=== PATIENT | male | born 1980 | race Caucasian/White ===

== ENCOUNTER 2020-09-03 14:53 | Inpatient (IN) | payer MEDICAID, OTHER ==
[~2020-09-03] VITALS: Ht 170.2 cm; Wt 120.2 kg
[2020-09-03 15:18] LABS: Basophils # (auto) 0.1 10 ^3/uL (0-0.2); Basophils % (auto) 1.3 % (0.0-2.0); Eosinophils # (auto) 0.3 10 ^3/uL (0-0.8); Hematocrit 45.8 % (41.0-53.0); Hemoglobin 15.5 g/dL (13.5-17.5); Lymphocytes # (auto) 1.8 10 ^3/uL (0.4-5.4); Lymphocytes % (auto) 36.7 % (10.0-50.0); Mean Corpuscular Hgb Conc. 33.7 g/dL (32.0-36.0); Mean Corpuscular Volume 88.8 fL (80.0-100.0); Monocytes # (auto) 0.5 10 ^3/uL (0-1.3); Monocytes % (auto) 9.5 % (0.0-12.0); Neutrophils # (auto) 2.3 10 ^3/uL (1.6-8.6); Neutrophils % (auto) 46.5 % (37.0-80.0); Platelet Count (auto) 170 10^3/uL (140-450); Red Blood Cells 5.16 10^6/uL (4.5-5.90); Red Cell Distribution Width 14.2 % (11.8-14.3); White Blood Cell 4.9 10^3/uL (4.4-10.8)
[2020-09-03] MEDS ORDERED: ASPirin 81 mg TAB PO ONE ×2 (15:30→23:45)
[2020-09-03 15:53] LABS: Alanine Aminotransferase 39 U/L (16-61); Albumin 3.8 g/dL (3.4-5.0); Anion Gap 5 (5-15); Aspartate Aminotransferase 25 U/L (15-37); BUN/Creatinine Ratio 4.8; Blood Urea Nitrogen 6 mg/dL (7-18); Calcium 8.7 mg/dL (8.5-10.1); Carbon Dioxide 29 mmol/L (21-32); Chloride 107 mmol/L (98-107); GFR African American 83 mL/min; GFR Non-African American 68 mL/min; Glucose 79 mg/dL (74-106); Potassium 3.7 mmol/L (3.5-5.1); Sodium 141 mmol/L (136-145)
[2020-09-03 15:58] LABS: Alkaline Phosphatase 84 U/L (45-117); Bilirubin, Total 0.4 mg/dL (0.2-1.0); Total Protein 7.1 g/dL (6.4-8.2)
[2020-09-03] MEDS: SODIUM CHLORIDE 0.9% 1,000 ML IV SCH (17:15)
[2020-09-03] MEDS ORDERED: ONDANSETRON HCL 4 MG/2 ML VIAL IV PRN (17:15)
[2020-09-03] MEDS ORDERED: MORPHINE SULFATE 4 MG/ML SYR/VIAL IV PRN (17:15)
[2020-09-03] MEDS ORDERED: NITROGLYCERIN 0.4 MG SL TAB SL PRN (17:15)
[2020-09-03 22:00] VITALS: BP 146/93
[2020-09-03] MEDS: ATORVASTATIN 20 MG TAB PO SCH (22:28)
[2020-09-03] MEDS: ZOLPIDEM TARTRATE 5 MG TAB PO PRN (22:28)
[2020-09-03] MEDS: LORazepam 0.5 MG TAB PO PRN (22:28)
[2020-09-03] MEDS: CARVEDILOL 3.125 MG TAB PO SCH (22:28)
[2020-09-04 06:00] VITALS: BP 114/69
[2020-09-04] MEDS: SODIUM CHLORIDE 0.9% 1,000 ML IV SCH ×2 (06:03→18:40)
[2020-09-04 09:00] VITALS: BP 130/97
[2020-09-04] MEDS: DOCUSATE SOD 100 MG CAP PO SCH (09:26)
[2020-09-04] MEDS: ASPirin 81 mg TAB PO SCH (09:26)
[2020-09-04] MEDS: CLOPIDOGREL BISULFATE 75 MG TAB PO SCH (09:28)
[2020-09-04] MEDS: CARVEDILOL 3.125 MG TAB PO SCH ×2 (09:28→21:54)
[2020-09-04] MEDS: LISINOPRIL 10 MG TAB PO SCH (09:29)
[2020-09-04 13:00] VITALS: BP 133/95
[2020-09-04 13:17] LABS: INR 1.06 (0.9-1.15)
[2020-09-04 15:14] LABS: Cholesterol 177 mg/dL (< 200); HDL Cholesterol 32 mg/dL (40-59); LDL Cholesterol 131 mg/dL (< 100); Triglycerides 191 mg/dL (< 150)
[2020-09-04 17:30] VITALS: BP 136/83
[2020-09-04] MEDS: ATORVASTATIN 20 MG TAB PO SCH (21:55)
[2020-09-04] MEDS: ACETAMINOPHEN 325 MG TAB PO PRN (22:01)
[2020-09-04 22:26] VITALS: BP 138/85
[2020-09-05 04:58] VITALS: BP 98/53
[2020-09-05 07:05] LABS: Basophils # (auto) 0.1 10 ^3/uL (0-0.2); Eosinophils # (auto) 0.3 10 ^3/uL (0-0.8); Eosinophils % (auto) 6.3 % (0.0-7.0); Hematocrit 46.7 % (41.0-53.0); Hemoglobin 15.7 g/dL (13.5-17.5); Lymphocytes # (auto) 1.9 10 ^3/uL (0.4-5.4); Lymphocytes % (auto) 35.9 % (10.0-50.0); Mean Corpuscular Hemoglobin 29.8 pg (28.0-32.0); Mean Corpuscular Hgb Conc. 33.7 g/dL (32.0-36.0); Mean Corpuscular Volume 88.6 fL (80.0-100.0); Monocytes # (auto) 0.5 10 ^3/uL (0-1.3); Monocytes % (auto) 9.4 % (0.0-12.0); Neutrophils # (auto) 2.5 10 ^3/uL (1.6-8.6); Neutrophils % (auto) 47.4 % (37.0-80.0); Nucleated Red Blood Cells % 0.1 %; Platelet Count (auto) 163 10^3/uL (140-450); Red Blood Cells 5.28 10^6/uL (4.5-5.90); White Blood Cell 5.3 10^3/uL (4.4-10.8)
[2020-09-05 07:38] LABS: Anion Gap 4 (5-15); BUN/Creatinine Ratio 10.1; Blood Urea Nitrogen 12 mg/dL (7-18); Calcium 8.6 mg/dL (8.5-10.1); Carbon Dioxide 28 mmol/L (21-32); Chloride 107 mmol/L (98-107); GFR African American 87 mL/min; GFR Non-African American 72 mL/min; Glucose 88 mg/dL (74-106); Potassium 4.1 mmol/L (3.5-5.1); Sodium 139 mmol/L (136-145)
[2020-09-05] MEDS ORDERED: ADENOSINE 88 MG in GIVE UN-DILUTED 0 ML IV STA (08:12)
[2020-09-05 09:00] VITALS: BP 148/90
[2020-09-05] MEDS: ASPirin 81 mg TAB PO SCH (09:41)
[2020-09-05] MEDS: LISINOPRIL 10 MG TAB PO SCH (09:45)
[2020-09-05] MEDS: CLOPIDOGREL BISULFATE 75 MG TAB PO SCH (09:45)
[2020-09-05] MEDS: ACETAMINOPHEN 325 MG TAB PO PRN (09:46)
[2020-09-05] MEDS: DOCUSATE SOD 100 MG CAP PO SCH (09:48)
[2020-09-05] MEDS: CARVEDILOL 3.125 MG TAB PO SCH ×2 (09:52→21:30)
[2020-09-05 10:07] LABS: Alcohol, Urine < 3.0 mg/dL (0-10); Amphetamine Screen, Urine NEGATIVE (NEGATIVE); Barbiturate Scree,Urine NEGATIVE (NEGATIVE); Benzodiazephine Screen, Urine NEGATIVE (NEGATIVE); Cannabinoid Screen, Urine NEGATIVE (NEGATIVE); Cocaine Screen, Urine NEGATIVE (NEGATIVE); Opiate Scree,Urine NEGATIVE (NEGATIVE); Phencyclidine Screen, Urine NEGATIVE (NEGATIVE)
[2020-09-05 10:18] LABS: Urine Bacteria NONE SEEN /hpf (None Seen); Urine Blood Negative /uL (Negative); Urine Hyaline Cast FEW /lpf (0 - 2); Urine Specific Gravity 1.012 (1.001-1.035); Urine WBC <1 /hpf (0 - 3)
[2020-09-05 10:19] VITALS: BP 137/94
[2020-09-05 12:55] VITALS: BP 148/101
[2020-09-05 16:59] VITALS: BP 131/99
[2020-09-05] MEDS: ATORVASTATIN 20 MG TAB PO SCH (21:30)
[2020-09-05] MEDS: ZOLPIDEM TARTRATE 5 MG TAB PO PRN (21:41)
[2020-09-05 22:00] VITALS: BP 128/94
[2020-09-06] MEDS: ASPirin 81 mg TAB PO SCH ×2 (04:25→10:00)
[2020-09-06 05:00] VITALS: BP 65/94
[2020-09-06] MEDS: LORazepam 0.5 MG TAB PO PRN (06:19)
[2020-09-06 06:43] LABS: Basophils # (auto) 0.1 10 ^3/uL (0-0.2); Eosinophils # (auto) 0.3 10 ^3/uL (0-0.8); Eosinophils % (auto) 4.4 % (0.0-7.0); Hematocrit 49.2 % (41.0-53.0); Hemoglobin 16.3 g/dL (13.5-17.5); Lymphocytes # (auto) 1.9 10 ^3/uL (0.4-5.4); Lymphocytes % (auto) 30.7 % (10.0-50.0); Mean Corpuscular Hemoglobin 29.3 pg (28.0-32.0); Mean Corpuscular Volume 88.8 fL (80.0-100.0); Monocytes # (auto) 0.6 10 ^3/uL (0-1.3); Monocytes % (auto) 9.9 % (0.0-12.0); Neutrophils # (auto) 3.4 10 ^3/uL (1.6-8.6); Nucleated Red Blood Cells % 0.1 %; Platelet Count (auto) 166 10^3/uL (140-450); Red Blood Cells 5.54 10^6/uL (4.5-5.90); White Blood Cell 6.3 10^3/uL (4.4-10.8)
[2020-09-06] MEDS ORDERED: LEVOTHYROXINE SODIUM 25 MCG TAB PO SCH (07:00)
[2020-09-06 07:02] LABS: BUN/Creatinine Ratio 10.9; Potassium 3.8 mmol/L (3.5-5.1)
[2020-09-06 07:07] LABS: INR 1.06 (0.9-1.15); Partial Thromboplastin Time 28.9 sec (23.0-31.2)
[2020-09-06 09:00] VITALS: BP 99/67
[2020-09-06] MEDS: LISINOPRIL 10 MG TAB PO SCH (10:00)
[2020-09-06] MEDS: CARVEDILOL 3.125 MG TAB PO SCH (10:00)
[2020-09-06] MEDS: DOCUSATE SOD 100 MG CAP PO SCH (10:00)
[2020-09-06] MEDS: CLOPIDOGREL BISULFATE 75 MG TAB PO SCH (10:00)
[2020-09-06] MEDS ORDERED: LIDOCAINE 2%HCL (LOCAL ANESTH.) INJ 20ML MDV ONE (10:54)
[2020-09-06] MEDS ORDERED: IODIXANOL 320MG/ML 100ML BTL IV ONE (10:54)
[2020-09-06] MEDS ORDERED: VERAPAMIL 2.5MG/ML INJ 2ML VIAL IV ONE (11:20)
[2020-09-06] MEDS ORDERED: HEPARIN SODIUM (PORCINE) 5000 UNITS/ML 1ML VIAL ONE ×2 (11:20→11:39)
[2020-09-06] MEDS ORDERED: SODIUM CHL 0.9% 0 ML ONE (11:21)
[2020-09-06] MEDS ORDERED: MIDAZOLAM HCL 1MG/1ML-2 ML VIAL ONE (11:21)
[2020-09-06] MEDS ORDERED: fentaNYL CITRATE 100 MCG/2 ML VL ONE (11:21)
[2020-09-06] MEDS ORDERED: ANGIOMAX 250 MG VIAL IV ONE (11:21)
[2020-09-06] MEDS ORDERED: IOHEXOL 350 MG/ML 100ML IJ ONE (11:22)
[2020-09-06 13:15] VITALS: BP 136/92
[2020-09-06] MEDS ORDERED: HYDROcodone-ACET 5/325MG TAB PO ONE (13:30)
[2020-09-06] MEDS ORDERED: LEV25T PO (14:04)
[2020-09-06] MEDS ORDERED: LISI-648 PO (14:04)
[2020-09-06] MEDS ORDERED: ASPI81CH43 PO (14:04)
[2020-09-06] MEDS ORDERED: METO25TA36 PO (14:04)
[2020-09-06] MEDS ORDERED: ATOR40TA52 PO (14:04)
[2020-09-06 16:00] VITALS: BP 142/90
[2020-09-06 16:38] VITALS: BP 136/100
[2020-09-06 18:09] VITALS: BP 136/100
== END 2020-09-06 18:50 | disposition home or self-care (01) | DRG 192 ==
LOC: ER 14:53 → TELE 14:54 → TELE-WESTW 21:55
PROVIDERS: ADMIT Hospitalist; ATTEND Internal Medicine
PROC: B211YZZ Fluoroscopy of Multiple Coronary Arteries using Other Contrast (ICD-10-PCS; principal; 2020-09-06)
PROC: 4A023N7 Measurement of Cardiac Sampling and Pressure, Left Heart, Percutaneous Approach (ICD-10-PCS; 2020-09-06)
PROC: B215YZZ Fluoroscopy of Left Heart using Other Contrast (ICD-10-PCS; 2020-09-06)
DX: I11.9 Hypertensive heart disease without heart failure (principal); E03.9 Hypothyroidism, unspecified; E66.01 Morbid (severe) obesity due to excess calories; E78.5 Hyperlipidemia, unspecified; F41.9 Anxiety disorder, unspecified; J45.909 Unspecified asthma, uncomplicated; Z80.8 Family history of malignant neoplasm of other organs or systems; Z82.3 Family history of stroke; Z88.0 Allergy status to penicillin; Z68.36 Body mass index [BMI] 36.0-36.9, adult
CPT/HCPCS: 36415; 71046; 78452; 80048; 80053; 80061; 80307; 81001; 84439; 84443; 84484; 85025; 85610; 85730; 86850; 86900; 86901; 93005; 93017; 93306; 93458; 96360; G0378; J0153; J2250; Q9967